=== PATIENT | male | born 1975 | race American Indian/Alaskan Native ===

== ENCOUNTER 2017-02-19 18:50 | Emergency (ER) | payer SELFPAY ==
[2017-02-19 20:23] LABS: Urine Drugs of Abuse Note Disclamer
[2017-02-19 20:32] LABS: Bilirubin,Urine NEG (Negative)
[2017-02-19 20:33] LABS: Blood,Urine NEG (Negative); Ketones,Urine NEG (Negative); Leukocyte Esterase,Urine NEG (Negative); Mucus,Urine FEW /HPF; Nitrite,Urine NEG (Negative); Protein,Urine <15 mg/dL mg/dL (Negative); Urobilinogen,Urine < 2.0 mg/dL (<2.0)
[2017-02-19 20:46] LABS: Basophils % (Auto) 0.8 % (0.0-1.8); Eosinophils % (Auto) 3.2 % (0.0-4.3); Hematocrit 41.5 % (35.5-45.6); Hemoglobin 13.9 gm/dl (11.8-15.2); Mean Corpuscular HGB Conc 34 % (32-34); Mean Corpuscular Hemoglobin 32 pg (28-32); Mean Corpuscular Volume 95 fl (84-94); Platelet Count 238 K/mm3 (140-440); Red Blood Count 4.38 M/mm3 (3.65-5.03); Red Cell Distribution Width 12.5 % (13.2-15.2); White Blood Count 4.1 K/mm3 (4.5-11.0)
[2017-02-19 20:59] LABS: Anion Gap 17 mmol/L; Blood Urea Nitrogen 8 mg/dL (9-20); Calcium 8.6 mg/dL (8.4-10.2); Carbon Dioxide 25 mmol/L (22-30); Chloride 98.8 mmol/L (98-107); Glucose 97 mg/dL (75-100); Potassium 3.9 mmol/L (3.6-5.0); Sodium 137 mmol/L (137-145)
--- NOTE | 2017-02-19 22:30 | Emergency Department Report ---
HPI - General Chief Complaint: Syncope Time Seen by Provider: 02/19/17 22:24 - HPI HPI: This is a 42-year-old -[place] male who presents to the emergency department by EMS with complaint of a 3 day history of intermittent headaches and a syncopal episode this afternoon. The patient says that when he goes outside in the heat that he gets very hot, lightheaded and today passed out while elevated. He says that this was witnessed and whoever the bystander was basically caught him before he hit the floor. He denies any chest pain, fever, nausea, vomiting or shortness of breath. He does not have any past medical history. He denies any current alcohol use. He admits to marijuana smoking but otherwise denies any other illicit drug use. He did not take anything and was not given anything for his symptoms prior to presentation. No recent travel or sick contacts at home. He does not have a primary care doctor. ED Past Medical Hx - Past Medical History Previous Medical History?: No - Surgical History Past Surgical History?: No - Social History Smoking Status: Current Every Day Smoker Substance Use Type: Marijuana - Medications Home Medications: Home Medications Medication Instructions Recorded Confirmed Last Taken Type Sulfamethoxazole/Trimethoprim 1 each PO BID #10 tablet 02/20/17 Unknown Rx [Bactrim DS TAB] ED Review of Systems ROS: Stated complaint: PASSED OUT Other details as noted in HPI Comment: All other systems reviewed and negative Constitutional: denies: chills, fever Eyes: denies: eye pain, eye discharge, vision change ENT: denies: ear pain, throat pain Respiratory: denies: cough, shortness of breath, wheezing Cardiovascular: syncope. denies: chest pain, palpitations Gastrointestinal: denies: abdominal pain, nausea, diarrhea Genitourinary: denies: urgency, dysuria Musculoskeletal: denies: back pain, joint swelling, arthralgia Skin: denies: rash, lesions Neurological: headache. denies: numbness Physical Exam - Physical Exam Vital Signs: Vital Signs 02/19/17 19:41 Temperature 98.8 F Pulse Rate 86 Respiratory 18 Rate Blood Pressure 100/66 O2 Sat by Pulse 99 Oximetry Physical Exam: GENERAL: The patient is well-developed well-nourished. HEENT: Normocephalic. Atraumatic. Extraocular motions are intact. Patient has moist mucous membranes. Pupils equal reactive to light bilaterally. No nystagmus. NECK: Supple. Trachea is midline. CHEST/LUNGS: Clear to auscultation. There is no respiratory distress noted. HEART/CARDIOVASCULAR: Regular. There is no tachycardia. There is no gallop rub or murmur. ABDOMEN: Abdomen is soft, nontender. Patient has normal bowel sounds. There is no abdominal distention. SKIN: There is a small 1 cm laceration or skin avulsion to the inside of the distal right forearm that does not appear infected and there is no current bleeding. NEURO: The patient is awake, alert, and oriented. The patient is cooperative. The patient has no focal neurologic deficits. The patient has normal speech and gait. Cranial nerves II through XII grossly intact. No pronator drift. MUSCULOSKELETAL: There is no tenderness or deformity. There is no limitation range of motion. There is no evidence of acute injury. Muscle strength 5 out of 5 for upper and lower extremities bilaterally. ED Course Vital Signs 02/19/17 19:41 Temperature 98.8 F Pulse Rate 86 Respiratory 18 Rate Blood Pressure 100/66 O2 Sat by Pulse 99 Oximetry ED Medical Decision Making - Lab Data Result diagrams: 02/19/17 20:19 02/19/17 20:19 - EKG Data -: EKG Interpreted by [place] EKG shows normal: sinus rhythm, axis, intervals, QRS complexes, ST-T waves Rate: normal - EKG Data When compared to previous EKG there are: previous EKG unavailable Interpretation: normal EKG - Radiology Data Radiology results: report reviewed CT of the head does not show any acute process including no hemorrhage, mass, shift, diffuse edema or skull fracture. - Medical Decision Making 42-year-old male presents emergency Department with a couple days of lightheadedness and one episode of syncope earlier today. There are no focal, motor or sensory deficits and his cranial nerves are intact. EKG does not show any signs of ST elevation [place], ischemia or dysrhythmia. CT of the head does not show any bleed, shift, mass or any acute process. Labs are mostly unremarkable do not show any etiology of the patient's symptoms. The laceration and/or skin avulsion was closed using Steri-Strips and Dermabond. Patient's urine drug screen was positive for amphetamines which may be why the patient was feeling so hot and/or lightheaded and possibly the cause of the syncopal episode. He denies using any illicit drugs and is not on any daily medications but I'm suspicious. However the patient's workup has been unremarkable. He has been seen ambulatory in the emergency department and appears stable. Vital signs stable including being afebrile. Follow the reasons patient appears safe for discharge home at this time. We discussed monitoring for infection. He was given referrals for primary care. He will return to the ER with any worsening of symptoms or any acute distress. - Differential Diagnosis drug abuse, vasovagal, orthostatic hypotension, TIA Critical Care Time: No Critical care attestation.: If time is entered above; I have spent that time in minutes in the direct care of this critically ill patient, excluding procedure time. ED Disposition Clinical Impression: Lightheaded Syncope Qualifiers: Syncope type: unspecified Qualified Code(s): R55 - Syncope and collapse Forearm laceration Qualifiers: Encounter type: initial encounter Laterality: left Qualified Code(s): S51.812A - Laceration without foreign body of left forearm, initial encounter Disposition: TO HOME OR SELFCARE Is pt being admited?: No Condition: Good Instructions: Laceration (ED), Syncope (ED), Skin Adhesive Care (ED) Additional Instructions: Please follow-up with a primary care physician in the next few days. Return to the emergency department with any worsening of your symptoms or any acute distress. The Steri-Strips and adhesive glue should dissolve and/or fall off on their own, do not pull it off. Return to the emergency Department or get seen sooner if you see any surrounding redness develop or any discharge of pus or any signs/symptoms of infection. Prescriptions: Sulfamethoxazole/Trimethoprim [Bactrim DS TAB] 1 each PO BID #10 tablet Referrals: PRIMARY CARE [Primary Care Provider] - 3-5 Days [facility] [Outside] - 3-5 Days [facility] [Outside] - 3-5 Days [facility] [Outside] - 3-5 Days [facility] [Outside] - 3-5 Days Time of Disposition: :13
--- NOTE | 2017-02-19 22:48 | Cat Scan Report ---
FINAL REPORT PROCEDURE: CT HEAD/BRAIN WO CON TECHNIQUE: Computerized tomography of the head was performed without contrast material. HISTORY: Headache, Syncope COMPARISON: No prior studies are available for comparison. FINDINGS: Brain: Brain density appears normal. No evidence of intracranial hemorrhage. No parenchymal hemorrhage, mass lesions or mass effect are seen. No abnormal extraxial fluid collects or masses are seen. Ventricles: Ventricles are normal size and are midline. Bone Windows: No evidence of skull fracture. Paranasal sinuses: Visualized portions of the paranasal sinuses appear clear. Mastoid air cells: Clear IMPRESSION: Negative examination
[2017-02-19] MEDS ORDERED: NORCO 5/325 PO ONE (23:40)
[2017-02-19] MEDS ORDERED: NORCO 5/325 ONE (23:43)
[2017-02-20] MEDS ORDERED: BOOSTRIX IM ONE (00:31)
[2017-02-20 01:56] VITALS: BP 103/78
== END 2017-02-20 01:56 | disposition home or self-care (01) ==
LOC: ED 18:50
DX: S51.812A Laceration without foreign body of left forearm, initial encounter (principal); R55 Syncope and collapse; R42 Dizziness and giddiness; F17.200 Nicotine dependence, unspecified, uncomplicated; F12.10 Cannabis abuse, uncomplicated; W17.89XA Other fall from one level to another, initial encounter; Y93.89 Activity, other specified; Y99.8 Other external cause status; Y92.89 Other specified places as the place of occurrence of the external cause
CPT/HCPCS: 36415; 70450; 80048; 80307; 81001; 82550; 84443; 84484; 85025; 90471; 90715; 93005; 93010

== ENCOUNTER 2018-02-12 16:59 | Emergency (ER) | payer SELFPAY ==
[2018-02-12 17:16] VITALS: BP 148/84
[2018-02-12 17:54] LABS: Basophils % (Auto) 0.4 % (0.0-1.8); Eosinophils # (Auto) 0.2 K/mm3 (0.0-0.4); Eosinophils % (Auto) 2.9 % (0.0-4.3); Hematocrit 44.8 % (35.5-45.6); Hemoglobin 15.3 gm/dl (11.8-15.2); Lymphocytes # (Auto) 1.3 K/mm3 (1.2-5.4); Lymphocytes % (Auto) 22.6 % (13.4-35.0); Mean Corpuscular HGB Conc 34 % (32-34); Mean Corpuscular Hemoglobin 33 pg (28-32); Mean Corpuscular Volume 97 fl (84-94); Monocytes # (Auto) 0.5 K/mm3 (0.0-0.8); Monocytes % (Auto) 9.1 % (0.0-7.3); Platelet Count 275 K/mm3 (140-440); Red Blood Count 4.63 M/mm3 (3.65-5.03); Red Cell Distribution Width 12.3 % (13.2-15.2)
[2018-02-12 18:18] LABS: Albumin 3.8 g/dL (3.9-5); BUN/Creatinine Ratio 9; Blood Urea Nitrogen 6 mg/dL (9-20); Calcium 9.2 mg/dL (8.4-10.2); Hemolysis Index 4; Lipase 20 units/L (13-60)
[2018-02-12 18:28] LABS: Alanine Aminotransferase < 5 units/L (7-56)
== END 2018-02-12 17:15 | disposition left against medical advice (07) ==
LOC: ED 16:59
DX: R10.9 Unspecified abdominal pain (principal); F12.90 Cannabis use, unspecified, uncomplicated; Z53.21 Procedure and treatment not carried out due to patient leaving prior to being seen by health care provider
CPT/HCPCS: 36415; 80053; 83690; 85025